=== PATIENT | female | born 1935 | race Caucasian/White ===

== ENCOUNTER → 2016-10-03 | Outpatient (CLI) | payer MEDICARE, OTHER | END | disposition home or self-care (01) | LOC: LAB.O 11:43 | PROVIDERS: ATTEND Internal Medicine Rheumatology | DX: Z79.899 Other long term (current) drug therapy (principal) ==

== ENCOUNTER 2016-10-23 16:26 | Emergency (ER) | payer MEDICARE, OTHER ==
--- NOTE | 2016-10-23 16:30 | ED.PDOC ---
History of Present Illness - General Chief Complaint: Respiratory Problem Stated Complaint: sob Time Seen by Provider: 10/23/16 16:28 Source: patient Exam Limitations: no limitations - History of Present Illness Initial Comments: Carla Grayson 81 female stated that she had been having pleuritic chest pain burning sensation whenever she takes deep breaths for the last 2 days.Also had been having occassional productive cough for several weeks.Denies fever ,chills ,but some sob Timing/Duration: other - 2 days Severity: moderate Activities at Onset: other - cough Possible Cause: no prior episodes Improving Factors: nothing Worsening Factors: other - cough Associated Symptoms: anxiety - 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 Respiratory Risk Factors: no cause identified Allergies/Adverse Reactions: Allergies Penicillins Allergy (Verified 10/23/16 16:49) Home Medications: Ambulatory Orders Folic Acid 1 mg PO BID #0 09/13/12 Hydroxychloroquine Sulfate [Hydroxychloroquine Sulfat] 200 mg PO BID #0 predniSONE [PredniSONE] 5 mg PO DAILY #0 09/13/12 Alendronate Sodium 35 mg PO WKLY 09/12/14 Ascorbic Acid [Vitamin C] 1,000 mg PO DAILY@0700 09/12/14 Biotin [Super Biotin] 5,000 mcg PO DAILY@0700 09/12/14 Calcium 600 mg PO BIDFD 09/12/14 Cetirizine HCl 10 mg PO DAILY 09/12/14 Dexlansoprazole [Dexilant] 60 mg PO BEDTIME 09/12/14 Etanercept [Enbrel Sureclick] 50 mg SC WKLY 09/12/14 Levothyroxine Sodium 137 mcg PO DAILY 09/12/14 Valsartan-Hydrochlorothiazide [Valsartan/Hydrochlorothia 320-25 mg] 1 tab PO DAILY@0700 09/12/14 Tramadol HCl 50 - 100 mg PO Q6H PRN #40 tab 09/17/14 Methotrexate Tab 2.5 mg PO WKLY 11/24/14 Azithromycin [Zithromax Z-Beau] 1 ea PO DAILY #1 pack 10/23/16 Review of Systems - Review of Systems Constitutional: States: no symptoms reported EENTM: States: other - chronic hoarseness Respiratory: States: cough Cardiology: States: see HPI Gastrointestinal/Abdominal: States: no symptoms reported Genitourinary: States: other - oab Musculoskeletal: States: joint pain - has RA Skin: States: no symptoms reported Neurological: States: anxiety Endocrine: States: no symptoms reported Hematologic/Lymphatic: States: no symptoms reported Past Medical History (General) - Patient Medical History Hx Seizures: No Hx Stroke: No Hx Dementia: No Hx Asthma: No Hx of COPD: No Hx Cardiac Disorders: No Hx Congestive Heart Failure: No Hx Pacemaker: No Hx Hypertension: Yes Hx Thyroid Disease: Yes Hx Diabetes: No Hx Gastroesophageal Reflux: Yes Hx Renal Disease: No Hx Cancer: No Hx of HIV: No Hx Hepatitis C: No Hx MRSA: No Hx Other PMH: Yes - Rheumatoid arthritis Surgical History: other - thyroid,knee,egd,colonoscopy,laryngoscopy,radiation treatment for presumed ca neck - Vaccination History Hx Tetanus, Diphtheria Vaccination: No Hx Influenza Vaccination: Yes Hx Pneumococcal Vaccination: Yes - Social History Hx Tobacco Use: No Hx Chewing Tobacco Use: No Hx Alcohol Use: No Hx Substance Use: No Hx Substance Use Treatment: No Hx Depression: Yes Hx Physical Abuse: No Hx Emotional Abuse: No Hx Suspected Abuse: No - Activities of Daily Living Patient Lives Alone: No - Family Medical History - Family History Mother Name: Jyoti ogden Living Status: Age at (years of age): 78 Cause of : cirrhosis Hx Family Asthma: No Hx Family Congestive Heart Failure: Yes Hx Family Hypertension: Yes Hx Family Stroke: No Hx Cardiac Disease: Yes Hx Family Diabetes: Yes Hx Family Cancer: No Physical Exam - Physical Exam General Appearance: Alert, No apparent distress Eyes, Ears, Nose, Throat Exam: PERRL/EOMI, normal ENT inspection, TMs normal, pharynx normal Neck: non-tender, full range of motion, supple, normal inspection Respiratory: chest non-tender, no respiratory distress, crackles Cardiovascular/Chest: normal peripheral pulses, regular rate, rhythm, no edema, no gallop, systolic murmur - 2nd ics left Peripheral Pulses: radial,right: 2+, radial,left: 2+ Extremity: normal range of motion, non-tender, normal inspection, no calf tenderness Neurologic: no motor/sensory deficits, alert, normal mood/affect, oriented x 3 Skin Exam: normal color, warm/dry Lymphatic: no adenopathy Progress - Results/Orders Results/Orders: Vital Signs - 8 hr 10/23/16 10/23/1610/23/17 16:49 16:59 17:30 Temperature 97.9 F Pulse Rate [ 78 73 81 Apical] Respiratory 22 22 22 Rate Blood Pressure 150/72 150/69 162/75 [Right Arm] O2 Sat by Pulse 99 98 98 Oximetry 10/23/16 16:30 IV Care:Saline Lock per Protoc QSHIFT Telemetry .ONCE Sodium Chloride 0.9% (Flush) [Saline Flush Syringe] 10 ml IV PRN PRN Pulse Ox Stat 10/23/16 16:31 EKG Assessment ONCE Pulse Oximetry Assessment DAILY 10/23/16 16:33 EKG Assessment ONCE 10/23/16 16:45 EKG STAT 10/23/16 17:35 TROPONIN-I Stat Laboratory Results WBC 6.7 K/mm3 (4.8-10.8) 10/23/16 16:44 RBC 3.44 M/mm3 (4.20-5.40) L 10/23/16 16:44 Hgb 10.7 gm/dL (12.0-16.0) L 10/23/16 16:44 Hct 31.8 % (36.0-47.0) L 10/23/16 16:44 MCV 92.6 fl (81.0-99.0) 10/23/16 16:44 MCH 31.1 pg (27.0-31.0) H 10/23/16 16:44 MCHC 33.7 g/dL (33.0-37.0) 10/23/16 16:44 RDW 15.5 % (11.5-14.5) H 10/23/16 16:44 Plt Count 190 K/mm3 (130-400) 10/23/16 16:44 MPV 7.6 fl (7.40-10.4) 10/23/16 16:44 Absolute Neuts (auto) 4.30 K/uL (1.8-6.8) 10/23/16 16:44 Absolute Lymphs (auto) 1.40 K/uL (1.0-3.4) 10/23/16 16:44 Absolute Monos (auto) 0.80 K/uL (0.2-0.8) 10/23/16 16:44 Absolute Eos (auto) 0.20 K/uL (0.0-0.4) 10/23/16 16:44 Absolute Basos (auto) 0.00 K/uL (0.0-0.1) 10/23/16 16:44 Neutrophils % 65.4 % (42.0-78.0) 10/23/16 16:44 Lymphocytes % 20.3 % (20.0-50.0) 10/23/16 16:44 Monocytes % 11.6 % (2.0-9.0) H 10/23/16 16:44 Eosinophils % 2.4 % (1.0-5.0) 10/23/16 16:44 Basophils % 0.3 % (0.0-2.0) 10/23/16 16:44 PT 10.8 SECONDS (9.4-12.5) 10/23/16 16:44 INR 0.960 10/23/16 16:44 PTT (SP) 28.6 SECONDS (25.1-36.5) 10/23/16 16:44 D-Dimer, Quantitative < 230 ng/mL (0-230) 10/23/16 16:44 Sodium 139 mmol/L (135-145) 10/23/16 16:44 Potassium 3.7 mmol/L (3.6-5.0) 10/23/16 16:44 Chloride 103 mmol/L (101-111) 10/23/16 16:44 Carbon Dioxide 28 mmol/L (21-31) 10/23/16 16:44 Anion Gap 11.7 (12-18) L 10/23/16 16:44 BUN 27 mg/dL (7-18) H 10/23/16 16:44 Creatinine 1.15 mg/dL (0.6-1.3) 10/23/16 16:44 BUN/Creatinine Ratio 23.5 (10-20) H 10/23/16 16:44 Random Glucose 94 mg/dL (70-105) 10/23/16 16:44 Serum Osmolality 282.4 mOsm/L (275-295) 10/23/16 16:44 Calcium 9.4 mg/dL (8.4-10.2) 10/23/16 16:44 Magnesium 1.6 mg/dL (1.8-2.5) L 10/23/16 16:44 Total Bilirubin 0.5 mg/dL (0.2-1.0) 10/23/16 16:44 Direct Bilirubin < 0.1 mg/dL (0-0.2) 10/23/16 16:44 Indirect Bilirubin 0.4 mg/dL (0.2-0.8) 10/23/16 16:44 AST 28 IU/L (10-42) 10/23/16 16:44 ALT 19 IU/L (10-60) 10/23/16 16:44 Alkaline Phosphatase 50 IU/L (42-121) 10/23/16 16:44 Creatine Kinase 131 IU/L (26-140) 10/23/16 16:44 CK-MB (CK-2) 4.4 ng/mL (0.0-4.4) 10/23/16 16:44 CK-MB (CK-2) % Not Reportable 10/23/16 16:44 Troponin I 0.05 ng/mL (0.01-0.05) 10/23/16 16:44 B-Natriuretic Peptide 150.0 pg/ml (0-100) H 10/23/16 16:44 Serum Total Protein 6.8 gm/dL (6.4-8.2) 10/23/16 16:44 Albumin 3.8 g/dl (3.2-5.5) 10/23/16 16:44 TSH 20.45 uIU/mL (0.34-5.60) H 10/23/16 16:44 10/23/16 16:30 IV Care:Saline Lock per Protoc QSHIFT Telemetry .ONCE Sodium Chloride 0.9% (Flush) [Saline Flush Syringe] 10 ml IV PRN PRN Pulse Ox Stat 10/23/16 16:31 EKG Assessment ONCE Pulse Oximetry Assessment DAILY 10/23/16 16:33 EKG Assessment ONCE 10/23/16 16:45 EKG STAT Laboratory Results WBC 6.7 K/mm3 (4.8-10.8) 10/23/16 16:44 RBC 3.44 M/mm3 (4.20-5.40) L 10/23/16 16:44 Hgb 10.7 gm/dL (12.0-16.0) L 10/23/16 16:44 Hct 31.8 % (36.0-47.0) L 10/23/16 16:44 MCV 92.6 fl (81.0-99.0) 10/23/16 16:44 MCH 31.1 pg (27.0-31.0) H 10/23/16 16:44 MCHC 33.7 g/dL (33.0-37.0) 10/23/16 16:44 RDW 15.5 % (11.5-14.5) H 10/23/16 16:44 Plt Count 190 K/mm3 (130-400) 10/23/16 16:44 MPV 7.6 fl (7.40-10.4) 10/23/16 16:44 Absolute Neuts (auto) 4.30 K/uL (1.8-6.8) 10/23/16 16:44 Absolute Lymphs (auto) 1.40 K/uL (1.0-3.4) 10/23/16 16:44 Absolute Monos (auto) 0.80 K/uL (0.2-0.8) 10/23/16 16:44 Absolute Eos (auto) 0.20 K/uL (0.0-0.4) 10/23/16 16:44 Absolute Basos (auto) 0.00 K/uL (0.0-0.1) 10/23/16 16:44 Neutrophils % 65.4 % (42.0-78.0) 10/23/16 16:44 Lymphocytes % 20.3 % (20.0-50.0) 10/23/16 16:44 Monocytes % 11.6 % (2.0-9.0) H 10/23/16 16:44 Eosinophils % 2.4 % (1.0-5.0) 10/23/16 16:44 Basophils % 0.3 % (0.0-2.0) 10/23/16 16:44 PT 10.8 SECONDS (9.4-12.5) 10/23/16 16:44 INR 0.960 10/23/16 16:44 PTT (SP) 28.6 SECONDS (25.1-36.5) 10/23/16 16:44 D-Dimer, Quantitative < 230 ng/mL (0-230) 10/23/16 16:44 Sodium 139 mmol/L (135-145) 10/23/16 16:44 Potassium 3.7 mmol/L (3.6-5.0) 10/23/16 16:44 Chloride 103 mmol/L (101-111) 10/23/16 16:44 Carbon Dioxide 28 mmol/L (21-31) 10/23/16 16:44 Anion Gap 11.7 (12-18) L 10/23/16 16:44 BUN 27 mg/dL (7-18) H 10/23/16 16:44 Creatinine 1.15 mg/dL (0.6-1.3) 10/23/16 16:44 BUN/Creatinine Ratio 23.5 (10-20) H 10/23/16 16:44 Random Glucose 94 mg/dL (70-105) 10/23/16 16:44 Serum Osmolality 282.4 mOsm/L (275-295) 10/23/16 16:44 Calcium 9.4 mg/dL (8.4-10.2) 10/23/16 16:44 Magnesium 1.6 mg/dL (1.8-2.5) L 10/23/16 16:44 Total Bilirubin 0.5 mg/dL (0.2-1.0) 10/23/16 16:44 Direct Bilirubin < 0.1 mg/dL (0-0.2) 10/23/16 16:44 Indirect Bilirubin 0.4 mg/dL (0.2-0.8) 10/23/16 16:44 AST 28 IU/L (10-42) 10/23/16 16:44 ALT 19 IU/L (10-60) 10/23/16 16:44 Alkaline Phosphatase 50 IU/L (42-121) 10/23/16 16:44 LD Total 278 IU/L (91-180) H 10/23/16 17:45 Creatine Kinase 131 IU/L (26-140) 10/23/16 16:44 CK-MB (CK-2) 4.4 ng/mL (0.0-4.4) 10/23/16 16:44 CK-MB (CK-2) % Not Reportable 10/23/16 16:44 Troponin I 0.05 ng/mL (0.01-0.05) 10/23/16 17:45 B-Natriuretic Peptide 150.0 pg/ml (0-100) H 10/23/16 16:44 Serum Total Protein 6.8 gm/dL (6.4-8.2) 10/23/16 16:44 Albumin 3.8 g/dl (3.2-5.5) 10/23/16 16:44 TSH 20.45 uIU/mL (0.34-5.60) H 10/23/16 16:44 Troponin #2 -normal limits,LD/LDH-278 - EKG/XRAY/CT EKG: Sinus, no ST T wave changes Comments: heart rate-82;no acute changes XRAY: chest - no acute abnormalities Departure - Departure Clinical Impression: Personal history of rheumatoid arthritis, Hypomagnesemia Chest pain Qualifiers: Chest pain type: pleurodynia Qualified Code(s): R07.81 - Pleurodynia Hypothyroidism Qualifiers: Hypothyroidism type: postoperative Qualified Code(s): E89.0 - Postprocedural hypothyroidism Time of Disposition: 18:26 Disposition: Discharge to Home or Self Care Condition: Fair Referrals: Piero Mann MD [Primary Care Provider] - 1-2 Weeks Prescriptions: Azithromycin [Zithromax Z-Beau] 1 ea PO DAILY #1 pack Home Medications: Ambulatory Orders Folic Acid 1 mg PO BID #0 09/13/12 Hydroxychloroquine Sulfate [Hydroxychloroquine Sulfat] 200 mg PO BID #0 predniSONE [PredniSONE] 5 mg PO DAILY #0 09/13/12 Alendronate Sodium 35 mg PO WKLY 09/12/14 Ascorbic Acid [Vitamin C] 1,000 mg PO DAILY@0709/12/14 Biotin [Super Biotin] 5,000 mcg PO DAILY@69909/12/14 Calcium 600 mg PO BIDFD 09/12/14 Cetirizine HCl 10 mg PO DAILY 09/12/14 Dexlansoprazole [Dexilant] 60 mg PO BEDTIME 09/12/14 Etanercept [Enbrel Sureclick] 50 mg SC WKLY 09/12/14 Levothyroxine Sodium 137 mcg PO DAILY 09/12/14 Valsartan-Hydrochlorothiazide [Valsartan/Hydrochlorothia 320-25 mg] 1 tab PO DAILY@0700 09/12/14 Tramadol HCl 50 - 100 mg PO Q6H PRN #40 tab 09/17/14 Methotrexate Tab 2.5 mg PO WKLY 11/24/14 Azithromycin [Zithromax Z-Beau] 1 ea PO DAILY #1 pack 10/23/16 Additional Instructions: RETURN TO EMERGENCY ROOM NEEDED;Need to take thyroid pills 1 hour before eating or 2 hours after meals
[2016-10-23] MEDS ORDERED: ASPIRIN TABLET 325 MG TAB ONE (16:34)
[2016-10-23] MEDS: SODIUM CHLORIDE 0.9% (FLUSH) 10 ML SYG IV PRN (16:36)
[2016-10-23] MEDS: ASPIRIN TABLET 325 MG TAB PO ONE (16:36)
--- NOTE | 2016-10-23 16:58 | RAD ---
EXAM: Chest,1 View CLINICAL INDICATION: 81-year-old female with chest pain. TECHNIQUE: Single view, AP portable chest was obtained. COMPARISON: 09/12/2012. FINDINGS: Stable prominent cardiac and mediastinal silhouette. Heart size is top normal. Tortuous thoracic aorta. Lungs are clear without focal opacity, pneumothorax or pleural effusions. The visualized bones are within normal limits. IMPRESSION: No acute cardiopulmonary abnormalities. Electronically signed by: Maribel Sorto MD 10/23/2016 4:59 PM CDT Workstation: [id number]
[2016-10-23 18:47] VITALS: BP 120/84; TEMP 97.5; O2SAT 97
== END 2016-10-23 18:40 | disposition home or self-care (01) ==
LOC: ER 16:26
DX: R07.81 Pleurodynia (principal); E89.0 Postprocedural hypothyroidism; M06.9 Rheumatoid arthritis, unspecified; E83.42 Hypomagnesemia; I10 Essential (primary) hypertension; E07.9 Disorder of thyroid, unspecified; K21.9 Gastro-esophageal reflux disease without esophagitis; Z88.0 Allergy status to penicillin; Z79.899 Other long term (current) drug therapy; Z85.41 Personal history of malignant neoplasm of cervix uteri

== ENCOUNTER → 2016-11-27 | Outpatient (CLI) | payer MEDICARE, OTHER | END | disposition home or self-care (01) | LOC: GMA 16:53 | PROVIDERS: ATTEND Nurse Practitioner Family | DX: M79.661 Pain in right lower leg (principal) ==

== ENCOUNTER → 2016-11-28 | Outpatient (CLI) | payer MEDICARE, OTHER ==
--- NOTE | 2016-11-28 15:47 | US ---
EXAM DESCRIPTION: Venous,Lower Extremity RT CLINICAL HISTORY: PAIN IN RIGHT LOWER LEG COMPARISON: None Available. TECHNIQUE: Two -dimensional and doppler sonographic evaluation of the deep venous system of the right lower extremity. FINDINGS: Doppler evaluation shows normal color flow and normal phasicity and augmentation of the right common femoral vein, femoral vein, popliteal vein, greater saphenous vein, peroneal, and posterior tibial vein. The right lower extremity deep veins showed normal occlusion with transducer pressure. Two-dimensional survey showed no echogenic thrombus within these veins. IMPRESSION: 1. Duplex ultrasound evaluation of the right lower extremity deep venous system showing no evidence of thrombosis or embolism. Electronically signed by: David Ayers MD 11/28/2016 3:45 PM CDT Workstation: [id number]
== END | disposition home or self-care (01) ==
LOC: US 07:55
PROVIDERS: ATTEND Nurse Practitioner Family
DX: M79.661 Pain in right lower leg (principal)

== ENCOUNTER → 2016-12-16 | Outpatient (CLI) | payer MEDICARE, OTHER | END | disposition home or self-care (01) | LOC: LAB.O 12:05 | PROVIDERS: ATTEND Internal Medicine Rheumatology | DX: Z79.899 Other long term (current) drug therapy (principal) ==

== ENCOUNTER → 2017-01-22 | Outpatient (CLI) | payer MEDICARE, OTHER | LOC: LAB.O 15:45 | PROVIDERS: ATTEND Internal Medicine Rheumatology | DX: Z79.899 Other long term (current) drug therapy (principal) ==

== ENCOUNTER → 2017-03-31 | Outpatient (CLI) | payer MEDICARE, OTHER | END | disposition home or self-care (01) | LOC: LAB.O 11:44 | PROVIDERS: ATTEND Internal Medicine Rheumatology | DX: Z79.899 Other long term (current) drug therapy (principal); E03.9 Hypothyroidism, unspecified; I10 Essential (primary) hypertension ==

== ENCOUNTER → 2017-05-27 | Outpatient (CLI) | payer MEDICARE, OTHER | END | disposition home or self-care (01) | LOC: LAB.O 11:13 | PROVIDERS: ATTEND Internal Medicine Rheumatology | DX: Z79.899 Other long term (current) drug therapy (principal) ==

== ENCOUNTER → 2017-09-09 | Outpatient (CLI) | payer MEDICARE, OTHER | LOC: LAB.O 13:52 | PROVIDERS: ATTEND Internal Medicine Rheumatology | DX: Z79.899 Other long term (current) drug therapy (principal) ==

== ENCOUNTER 2017-10-22 11:49 | Emergency (ER) | payer MEDICARE, OTHER ==
[2017-10-22 11:59] VITALS: TEMP 98.1
--- NOTE | 2017-10-22 12:35 | RAD ---
EXAM DESCRIPTION: Chest,2 Views CLINICAL HISTORY: left anterior chest wall and posterior upper left COMPARISON: October 23, 2016 FINDINGS: Two-view chest x-ray shows mild enlargement of the cardiac silhouette without pulmonary vascular congestion. Tortuosity the thoracic aorta is seen. The lungs are normally aerated and clear. Costophrenic angles are sharp. Mild disc degenerative changes of the spine are seen. Diffuse osteopenia the osseous structures is noted. IMPRESSION: No radiographic evidence of acute cardiopulmonary disease. Electronically signed by: Tobias King MD 10/22/2017 12:33 PM CDT
[2017-10-22] MEDS: POTASSIUM CHLORIDE ELIXIR 20 MEQ/15 ML UD PO ONE (12:37)
[2017-10-22] MEDS ORDERED: MAGNESIUM OXIDE 400 MG TAB ONE (13:23)
[2017-10-22] MEDS: MAGNESIUM OXIDE 400 MG TAB PO ONE (13:28)
[2017-10-22] MEDS: METOPROLOL TARTRATE 25 MG TAB PO ONE (13:28)
[2017-10-22 15:19] VITALS: O2SAT 96
--- NOTE | 2017-10-22 16:17 | ED.PDOC ---
History of Present Illness - General Chief Complaint: Chest Pain/WI Stated Complaint: chest discomfort,left arm tenderness Time Seen by Provider: 10/22/17 12:00 Source: patient Exam Limitations: no limitations - History of Present Illness Initial Comments: the patient is an 82-year-old female brought in with family secondary to chest pain that has been persistent for the last 3 days. She does have intermittent spasms. Chest pain is towards the left upper chest and also towards the left upper back. It is worse with movement. She is tender to palpation over the distal pectoralis muscles. On the left. She is also tender to palpation over the left rhomboid and upper left paraspinal muscles. There is some palpable muscle spasm. No obvious bruising. No rash. No deformity. Range of motion is preserved. She does have a history of rheumatoid arthritis. Severity: mild Improving Factors: nothing Worsening Factors: movement Associated Symptoms: chest pain Allergies/Adverse Reactions: Allergies Penicillins Allergy (Verified 10/23/16 16:49) Home Medications: Ambulatory Orders predniSONE [PredniSONE] 5 mg PO DAILY #0 09/13/12 Alendronate Sodium 150 mg PO WKLY 09/12/14 Cetirizine HCl 10 mg PO DAILY 09/12/14 Levothyroxine Sodium 137 mcg PO DAILY 09/12/14 Valsartan-Hydrochlorothiazide [Valsartan/Hydrochlorothia 320-25 mg] 1 tab PO DAILY@0700 09/12/14 Methotrexate Tab 2.5 mg PO WKLY 11/24/14 Citalopram Hydrobromide [Citalopram] 10 mg PO DAILY 10/22/17 Colestipol HCl 1 gm PO DAILY 10/22/17 Fluticasone Furoate-Vilanterol [Breo Ellipta] 1 inh IN DAILY 10/22/17 Fluticasone Propionate (Nasal) [Flonase Allergy Relief] 2 inh NA DAILY 10/22/17 Fluticasone/Salmeterol 250/50 [Advair Diskus] 1 puff INH DAILY 10/22/17 Folic Acid 1 mg PO DAILY 10/22/17 Hydroxychloroquine Sulfate [Hydroxychloroquine Sulfat] 200 mg PO DAILY 10/22/17 Magnesium Oxide 400 mg PO DAILY #14 cap 10/22/17 Metoprolol Tartrate 25 mg PO BID #60 tab 06/06/18 Montelukast [Singulair] 10 mg PO BEDTIME 10/22/17 Potassium Chloride [Potassium Chloride ER] 10 meq PO DAILY #14 tab 10/22/17 Valsartan 80 mg PO DAILY #30 tab 10/22/17 Review of Systems - Review of Systems Constitutional: States: no symptoms reported EENTM: States: nose congestion Respiratory: States: no symptoms reported Cardiology: States: chest pain Gastrointestinal/Abdominal: States: no symptoms reported Genitourinary: States: no symptoms reported Musculoskeletal: States: back pain Skin: States: no symptoms reported Neurological: States: no symptoms reported Endocrine: States: no symptoms reported All other Systems: No Change from Baseline Past Medical History (General) - Patient Medical History Hx Seizures: No Hx Stroke: No Hx Dementia: No Hx Asthma: No Hx of COPD: No Hx Cardiac Disorders: No Hx Congestive Heart Failure: No Hx Pacemaker: No Hx Hypertension: Yes Hx Thyroid Disease: Yes Hx Diabetes: No Hx Gastroesophageal Reflux: Yes Hx Renal Disease: No Hx Cancer: No Hx of HIV: No Hx Hepatitis C: No Hx MRSA: No - Vaccination History Hx Tetanus, Diphtheria Vaccination: No Hx Influenza Vaccination: Yes Hx Pneumococcal Vaccination: Yes - Social History Hx Tobacco Use: Yes Hx Chewing Tobacco Use: No Hx Alcohol Use: No Hx Substance Use: No Hx Substance Use Treatment: No Hx Depression: Yes Hx Physical Abuse: No Hx Emotional Abuse: No Hx Suspected Abuse: No Family Medical History - Family History Mother Name: Jyoti ogden Living Status: Age at (years of age): 78 Cause of : cirrhosis Hx Family Asthma: No Hx Family Congestive Heart Failure: Yes Hx Family Hypertension: Yes Hx Family Stroke: No Hx Cardiac Disease: Yes Hx Family Diabetes: Yes Hx Family Cancer: No Physical Exam - Physical Exam General Appearance: Alert, Anxious, No apparent distress Eye Exam: bilateral normal Ears, Nose, Throat: hearing grossly normal, normal ENT inspection, normal pharynx Neck: full range of motion, supple Respiratory: lungs clear, normal breath sounds, no respiratory distress, no accessory muscle use, other - ee history of present illness Cardiovascular/Chest: normal peripheral pulses, no edema, other Peripheral Pulses: radial,right: 2+, radial,left: 2+, dorsalis pedis,right: 2+, dorsalis pedis,left: 2+ Gastrointestinal/Abdominal: non tender, soft Rectal Exam: deferred Extremity: normal range of motion, non-tender, normal inspection, no pedal edema , normal capillary refill 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 She has tenderness to palpation over the rhomboid muscle, the distal pectoralis muscle. These are likely made worse by the hypomagnesemia and hypokalemia. She will be placed on supplements for these for the next 2 weeks. Additionally she is mildly dehydrated which may be contributing. I'm going to change her valsartan hydrochlorothiazide to valsartan. This may help with the above potassium and magnesium issues as well. Additionally the patient does have an elevation of her BNP but no clinical evidence otherwise of any fluid overload. I suspect that this is related to her elevated blood pressures. I'm going to place the patient on metoprolol 25 mg twice daily. I want her to follow up with her primary care doctor towards the end of this week for reevaluation of the above issues. Additionally the patient's TSH was low at 0.07. Her Synthroid dose may need to be lowered in the near future after a full panel has been taken. ER warnings were given for any significant worsening. No evidence of significant infection has been found at this time. - Results/Orders Results/Orders: Laboratory Tests 10/22/17 10/22/17 10/22/17 12:00 12:00 12:00 WBC 7.6 RBC 4.17 L Hgb 12.8 Hct 38.1 MCV 91.4 MCH 30.6 MCHC 33.6 RDW 16.0 H Plt Count 234 MPV 8.1 Absolute Neuts (auto) 5.60 Absolute Lymphs (auto) 1.20 Absolute Monos (auto) 0.70 Absolute Eos (auto) 0.10 Absolute Basos (auto) 0.00 Neutrophils % 73.7 Lymphocytes % 15.6 L Monocytes % 8.9 Eosinophils % 1.3 Basophils % 0.5 Sodium 138 Potassium 3.3 L Chloride 100 L Carbon Dioxide 30 Anion Gap 11.3 L BUN 20 H Creatinine 0.87 BUN/Creatinine Ratio 23.0 H Random Glucose 98 Serum Osmolality 278.3 Calcium 10.0 Magnesium 1.6 L Total Bilirubin 0.6 AST 24 ALT 16 Alkaline Phosphatase 50 Creatine Kinase 58 CK-MB (CK-2) 3.4 CK-MB (CK-2) % Not Reportable Troponin I 0.03 B-Natriuretic Peptide 446.0 H* Serum Total Protein 7.3 Albumin 4.1 Globulin 3.2 Albumin/Globulin Ratio 1.3 TSH 0.07 L Urine Color Urine Appearance Urine pH Ur Specific [place] Urine Protein Urine Glucose (UA) Urine Ketones Urine Blood Urine Nitrite Urine Bilirubin Urine Urobilinogen Ur Leukocyte Esterase Urine RBC Urine WBC Ur Epithelial Cells Urine Bacteria 10/22/17 13:00 WBC RBC Hgb Hct MCV MCH MCHC RDW Plt Count MPV Absolute Neuts (auto) Absolute Lymphs (auto) Absolute Monos (auto) Absolute Eos (auto) Absolute Basos (auto) Neutrophils % Lymphocytes % Monocytes % Eosinophils % Basophils % Sodium Potassium Chloride Carbon Dioxide Anion Gap BUN Creatinine BUN/Creatinine Ratio Random Glucose Serum Osmolality Calcium Magnesium Total Bilirubin AST ALT Alkaline Phosphatase Creatine Kinase CK-MB (CK-2) CK-MB (CK-2) % Troponin I B-Natriuretic Peptide Serum Total Protein Albumin Globulin Albumin/Globulin Ratio TSH Urine Color Yellow Urine Appearance Clear Urine pH 6.0 Ur Specific [place] 1.015 Urine Protein Negative Urine Glucose (UA) Negative Urine Ketones Negative Urine Blood Trace-lysed H Urine Nitrite Negative Urine Bilirubin Negative Urine Urobilinogen 0.2 Ur Leukocyte Esterase Trace H Urine RBC 0-1 Urine WBC 0-1 Ur Epithelial Cells 0 Urine Bacteria 0 hest x-rays benign except for mild cardiomegaly. No overt fluid overload. No infiltrate. No fractures. No mass. EKG shows normal sinus rhythm at 84 bpm. Normal axis. Borderline LVH. No acute ST segment changes concerning for ischemia. QT intervals within normal limits. Departure - Departure Clinical Impression: Atypical chest pain, Hypokalemia, Hypomagnesemia, Dehydration, Uncontrolled hypertension Disposition: Discharge to Home or Self Care Condition: Fair Departure Forms: ED Discharge - Pt. Copy, Patient Portal Self Enrollment Instructions: DI for Muscle Strain, DI for Hypokalemia, DI for Dehydration -- Adult, DI for Hyperthyroidism Diet: regular diet Activity: increase activity as tolerated Referrals: Piero Mann MD [Primary Care Provider] - 1-5 Days Prescriptions: Magnesium Oxide 400 mg PO DAILY #14 cap Metoprolol Tartrate 25 mg PO BID #60 tab Potassium Chloride [Potassium Chloride ER] 10 meq PO DAILY #14 tab Valsartan 80 mg PO DAILY #30 tab Home Medications: Ambulatory Orders predniSONE [PredniSONE] 5 mg PO DAILY #0 09/13/12 Alendronate Sodium 150 mg PO WKLY 09/12/14 Cetirizine HCl 10 mg PO DAILY 09/12/14 Levothyroxine Sodium 137 mcg PO DAILY 09/12/14 Valsartan-Hydrochlorothiazide [Valsartan/Hydrochlorothia 320-25 mg] 1 tab PO DAILY@0700 09/12/14 Methotrexate Tab 2.5 mg PO WKLY 11/24/14 Citalopram Hydrobromide [Citalopram] 10 mg PO DAILY 10/22/17 Colestipol HCl 1 gm PO DAILY 10/22/17 Fluticasone Furoate-Vilanterol [Breo Ellipta] 1 inh IN DAILY 10/22/17 Fluticasone Propionate (Nasal) [Flonase Allergy Relief] 2 inh NA DAILY 10/22/17 Fluticasone/Salmeterol 250/50 [Advair Diskus] 1 puff INH DAILY 10/22/17 Folic Acid 1 mg PO DAILY 10/22/17 Hydroxychloroquine Sulfate [Hydroxychloroquine Sulfat] 200 mg PO DAILY 10/22/17 Magnesium Oxide 400 mg PO DAILY #14 cap 10/22/17 Metoprolol Tartrate 25 mg PO BID #60 tab 10/22/17 Montelukast [Singulair] 10 mg PO BEDTIME 10/22/17 Potassium Chloride [Potassium Chloride ER] 10 meq PO DAILY #14 tab 10/22/17 Valsartan 80 mg PO DAILY #30 tab 10/22/17 Additional Instructions: the patient is an 82-year-old female presenting with atypical chest pain for the last 3 days. She has tenderness to palpation over the rhomboid muscle, the distal pectoralis muscle. These are likely made worse by the hypomagnesemia and hypokalemia. She will be placed on supplements for these for the next 2 weeks. Additionally she is mildly dehydrated which may be contributing. I'm going to change her valsartan hydrochlorothiazide to valsartan. This may help with the above potassium and magnesium issues as well. Additionally the patient does have an elevation of her BNP but no clinical evidence otherwise of any fluid overload. I suspect that this is related to her elevated blood pressures. I'm going to place the patient on metoprolol 25 mg twice daily. I want her to follow up with her primary care doctor towards the end of this week for reevaluation of the above issues. Additionally the patient's TSH was low at 0.07. Her Synthroid dose may need to be lowered in the near future after a full panel has been taken. ER warnings were given for any significant worsening. No evidence of significant infection has been found at this time.
[2017-10-22 16:49] VITALS: BP 173/65
== END 2017-10-22 16:50 | disposition home or self-care (01) ==
LOC: ER 11:49
DX: R07.9 Chest pain, unspecified (principal); E87.6 Hypokalemia; E86.0 Dehydration; I10 Essential (primary) hypertension; E83.42 Hypomagnesemia; E07.9 Disorder of thyroid, unspecified; K21.9 Gastro-esophageal reflux disease without esophagitis; Z87.891 Personal history of nicotine dependence; M06.9 Rheumatoid arthritis, unspecified

== ENCOUNTER → 2017-11-04 | Outpatient (CLI) | payer MEDICARE, OTHER | LOC: GMAH 14:23 | PROVIDERS: ATTEND Family Medicine | DX: E87.6 Hypokalemia (principal) ==

== ENCOUNTER → 2017-11-18 | Outpatient (CLI) | payer MEDICARE, OTHER | LOC: LAB.O 13:40 | PROVIDERS: ATTEND Internal Medicine Rheumatology | DX: Z79.899 Other long term (current) drug therapy (principal) ==

== ENCOUNTER → 2017-12-01 | Outpatient (CLI) | payer MEDICARE, OTHER | LOC: GMALS 16:44 | PROVIDERS: ATTEND Nurse Practitioner Acute Care | DX: D51.3 Other dietary vitamin B12 deficiency anemia (principal); E53.9 Vitamin B deficiency, unspecified ==

== ENCOUNTER → 2018-03-09 | Outpatient (CLI) | payer MEDICARE, OTHER ==
--- NOTE | 2018-03-09 17:51 | MRI ---
EXAM DESCRIPTION: Lumbar Spine w/o Contrast : Magnetic Resonance Imaging. CLINICAL HISTORY: RADICULOPATHY, LUMBAR REGION COMPARISON: None. TECHNIQUE: Multiplanar, multiple standard sequences, non contrast MRI, lumbar spine. FINDINGS: L5-S1: Demonstrated on T2 axial sequence 201, image 8. Normal signal in the disc with disc space preserved. Tiny posterior midline bulge. Right facet arthrosis and flavum ligament hypertrophy. Moderate narrowing of the right foramen and mild narrowing of the left foramen. Mild canal narrowing. L4-5: Moderate loss of the disc space with disc desiccation. Grade 1 anterolisthesis. Disc bulges 4 mm opacity L5 endplate. Bilateral facet arthrosis and moderate flavum ligament hypertrophy with compression of the thecal sac AP canal diameter 8 mm. Modic type II endplate reactive changes to the right of midline with disc spur complex encroaching on the foramen and the exiting right L4 nerve which is stenotic. Left foramen patent. To the left of midline, is an extruded or sequestered fragment approximately 5 mm in length and 9 mm in width migrating inferior to the disc space into the left lateral recess and most likely impinging the inferior left L5 nerve. L3-4: Normal signal in the disc and disc space maintained. Mild to moderate flavum ligament hypertrophy and minimal facet arthrosis with mild canal narrowing. Minimal to moderate narrowing of the left foramen with right foramen patent. L2-3: Normal signal in the disc with disc space maintained. Bilateral flavum ligament hypertrophy. Minimal disc bulge into the left foramen with minimal narrowing. Canal and right foramen are patent. L1-2: Disc desiccation with minimal posterior midline bulge. Left facet arthrosis and ligament hypertrophy. Mild narrowing of the left foramen. Conus terminates just above the disc space level. T12-L1: Disc space maintained with normal signal in the disc. Posterior elements unremarkable. Canal and foramina are patent. Dextroscoliosis L1-L3. Paravertebral soft tissues showing paraspinal muscle atrophy and atherosclerotic changes in the abdominal aorta.. Well-circumscribed hyperintense T1 and T2 signal in the inferior L2 endplate with no signal in the inversion recovery sequence indicating a hemangioma. Normal marrow signal in the remaining vertebral bodies and the posterior elements. Vertebral bodies are not compressed at any level. IMPRESSION: 1. Advanced spondylosis to the right of midline at L4-5 with disc spur complex encroaching on the right L4 nerve exiting the foramen which is stenotic. Left posterior disc herniation with extrusion or sequestered fragment migrating into the subarticular recess and impinging the descending left L5 nerve. Mild canal stenosis. 2. Tiny posterior midline bulge L5-S1. Moderate narrowing of the right foramen. 3. Lumbar dextroscoliosis with spondylosis and disc bulging narrowing the left foramen at L3-4, L2-3, and L1-L2. Electronically signed by: David Ayers MD 03/09/2018 5:50 PM CDT
== END ==
LOC: MRI 11:01
PROVIDERS: ATTEND Family Medicine
DX: M54.16 Radiculopathy, lumbar region (principal); M47.896 Other spondylosis, lumbar region; M41.86 Other forms of scoliosis, lumbar region; M51.26 Other intervertebral disc displacement, lumbar region

== ENCOUNTER → 2018-05-21 | Outpatient (CLI) | payer MEDICARE, OTHER ==
--- NOTE | 2018-05-21 13:41 | MRI ---
EXAM DESCRIPTION: Lumbar Spine w/o Contrast CLINICAL HISTORY: 82 years Female, RADICULOPATHY COMPARISON: MRI of the lumbar spine dated 03/09/2018. TECHNIQUE: Multiplanar multiecho imaging of the lumbar spine was performed without intravenous contrast administration. FINDINGS: The vertebral body heights are well-maintained with no acute compression deformity. Multilevel intervertebral disc space narrowing is noted. The conus medullaris terminates at T12-L1 intervertebral disc space. The visualized spinal cord demonstrates no signal abnormality. L1-L2: Mild disc bulge and facet arthropathy with no central canal stenosis. There is mild right and [id number] left neural foraminal narrowing. L2-L3: Mild disc bulge and facet arthropathy with no central canal stenosis. There is mild bilateral neural foraminal narrowing. L3-L4: Posterior disc bulge and facet arthropathy with no central canal stenosis. There is mild right and moderate left neural foraminal narrowing. L4-L5: Posterior disc osteophyte complex with a superimposed left paracentral disc extrusion measuring approximately 1.5 cm in craniocaudal dimension. This abuts the traversing left L5 nerve root. Severe right and mild left neural foraminal narrowing is noted secondary to facet arthropathy. L5-S1: No central canal stenosis. There is mild bilateral neural foraminal narrowing secondary to facet arthropathy. The visualized prevertebral and paravertebral soft tissues appear unremarkable. IMPRESSION: 1. Posterior disc osteophyte complex with a superimposed left paracentral disc extrusion at L4-L5. There is resultant abutment of the traversing left L5 nerve root. 2. Multilevel degenerative disc disease and facet arthropathy throughout the lumbar spine with variable degrees of neural foraminal narrowing, worse at L4-L5 level on the right side. Electronically signed by: Sofya Melendez MD 05/21/2018 1:39 PM [facility]
== END ==
LOC: MRI 13:00
PROVIDERS: ATTEND Family Medicine
DX: M51.16 Intervertebral disc disorders with radiculopathy, lumbar region (principal); M25.78 Osteophyte, vertebrae

== ENCOUNTER 2018-07-23 19:17 | Emergency (ER) | payer MEDICARE, OTHER ==
--- NOTE | 2018-07-23 19:37 | ED.PDOC ---
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 UNDERWENT DXT SHE HAD VOMITED FEW TIMES TODAY FAMILY STATED THEY HAD GIVEN ZOFRAN AND DEXAMETHASONE UNDER THE DIRECTION OF HER ONCOLOGIST DR MAYES PE AWAKE ALERT ORIENTED X 3 LEFT NECK SURGICAL INCISION APPEARS DRY NO HEMATOMA MADHU DRAIN IS EMPTY LUNGS CLEAR HEART SOUNDS SYSTOLIC MURMUR LEFT STERNAL BORDER ABD SOFT EXTREMITIES 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 - History of Present Illness Timing/Duration: 4-6 hours Severity: moderate Improving Factors: nothing Associated Symptoms: denies symptoms Allergies/Adverse Reactions: Allergies Penicillins Allergy (Verified 10/23/16 16:49) Home Medications: Ambulatory Orders predniSONE [PredniSONE] 5 mg PO DAILY #0 09/13/12 Alendronate Sodium 150 mg PO WKLY 09/12/14 Cetirizine HCl 10 mg PO DAILY 09/12/14 Levothyroxine Sodium 137 mcg PO DAILY 09/12/14 Valsartan-Hydrochlorothiazide [Valsartan/Hydrochlorothia 320-25 mg] 1 tab PO DAILY@0700 09/12/14 Methotrexate Tab 2.5 mg PO WKLY 11/24/14 Citalopram Hydrobromide [Citalopram] 10 mg PO DAILY 10/22/17 Colestipol HCl 1 gm PO DAILY 10/22/17 Fluticasone Furoate-Vilanterol [Breo Ellipta] 1 inh IN DAILY 10/22/17 Fluticasone Propionate (Nasal) [Flonase Allergy Relief] 2 inh NA DAILY 10/22/17 Fluticasone/Salmeterol 250/50 [Advair Diskus] 1 puff INH DAILY 10/22/17 Folic Acid 1 mg PO DAILY 10/22/17 Hydroxychloroquine Sulfate [Hydroxychloroquine Sulfat] 200 mg PO DAILY 10/22/17 Magnesium Oxide 400 mg PO DAILY #14 cap 10/22/17 Metoprolol Tartrate 25 mg PO BID #60 tab 10/22/17 Montelukast [Singulair] 10 mg PO BEDTIME 10/22/17 Potassium Chloride [Potassium Chloride ER] 10 meq PO DAILY #14 tab 10/22/17 Valsartan 80 mg PO DAILY #30 tab 10/22/17 Review of Systems - Review of Systems Constitutional: States: no symptoms reported EENTM: States: no symptoms reported Respiratory: States: no symptoms reported Cardiology: States: no symptoms reported Gastrointestinal/Abdominal: States: no symptoms reported Genitourinary: States: no symptoms reported Musculoskeletal: States: no symptoms reported Skin: States: no symptoms reported Neurological: States: no symptoms reported Endocrine: States: no symptoms reported Hematologic/Lymphatic: States: no symptoms reported Past Medical History (General) - Patient Medical History Hx Seizures: No Hx Stroke: No Hx Dementia: No Hx Asthma: No Hx of COPD: No Hx Cardiac Disorders: No Hx Congestive Heart Failure: No Hx Pacemaker: No Hx Hypertension: Yes Hx Thyroid Disease: Yes Hx Diabetes: No Hx Gastroesophageal Reflux: Yes Hx Renal Disease: No Hx Cancer: No Hx of HIV: No Hx Hepatitis C: No Hx MRSA: No - Vaccination History Hx Tetanus, Diphtheria Vaccination: No Hx Influenza Vaccination: Yes Hx Pneumococcal Vaccination: Yes - Social History Hx Tobacco Use: Yes Hx Chewing Tobacco Use: No Hx Alcohol Use: No Hx Substance Use: No Hx Substance Use Treatment: No Hx Depression: Yes Hx Physical Abuse: No Hx Emotional Abuse: No Hx Suspected Abuse: No Family Medical History - Family History Mother Name: Jyoti ogden Living Status: Age at (years of age): 78 Cause of : cirrhosis Hx Family Asthma: No Hx Family Congestive Heart Failure: Yes Hx Family Hypertension: Yes Hx Family Stroke: No Hx Cardiac Disease: Yes Hx Family Diabetes: Yes Hx Family Cancer: No Physical Exam - Physical Exam General Appearance: Alert, Comfortable Eye Exam: bilateral normal Ears, Nose, Throat: hearing grossly normal, normal ENT inspection, normal pharynx Neck: non-tender, full range of motion, supple Respiratory: chest non-tender, lungs clear, normal breath sounds, no respiratory distress, no accessory muscle use Cardiovascular/Chest: normal peripheral pulses, regular rate, rhythm, no gallop, systolic murmur Peripheral Pulses: radial,right: 2+, radial,left: 2+, femoral,right: 2+, femoral,left: 2+ Gastrointestinal/Abdominal: normal bowel sounds, non tender, soft, no pulsatile mass 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 tested, no motor/sensory deficits, alert, normal mood/affect, oriented x 3 Progress - Progress Progress: 07/23/18 21:12 Laboratory Tests 07/23/18 07/23/18 19:40 19:40 WBC 6.0 RBC 3.52 L Hgb 10.5 L Hct 31.9 L MCV 90.8 MCH 29.7 MCHC 32.7 L RDW 16.0 H Plt Count 197 MPV 8.0 Absolute Neuts (auto) 4.80 Absolute Lymphs (auto) 0.70 L Absolute Monos (auto) 0.40 Absolute Eos (auto) 0.00 Absolute Basos (auto) 0.00 Neutrophils % 81.0 H Lymphocytes % 11.4 L Monocytes % 7.2 Eosinophils % 0.3 L Basophils % 0.1 Sodium 134 L Potassium 4.0 Chloride 101 Carbon Dioxide 23 Anion Gap 14.0 BUN 26 H Creatinine 0.82 BUN/Creatinine Ratio 31.7 H Random Glucose 108 H Serum Osmolality 273.5 L Calcium 8.8 Total Bilirubin 0.7 AST 19 ALT 14 Alkaline Phosphatase 62 Serum Total Protein 6.2 L Albumin 3.6 Globulin 2.6 Albumin/Globulin Ratio 1.4 07/23/18 21:12 CT HEAD LEFT FRONTAL LOBE EDEMA WITH [address] LUMBAR COMPRESSION FRACTURE T10 WITH MINIMAL RETROPULSION FINDINGS DISCUSSED WITH DR MAYES ( HER ONCOLOGIST ) PLAN DIRECT ADMIT TO [facility] FOR FURTHER WORK UP DISCUSSED WITH DR RODNEY VARGAS MD WHO ACCEPTED THE PATIENT Departure - Departure Clinical Impression: Vertigo, Brain metastasis 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 Clinical Impression: (Ruled Out): Lymphoma in remission Time of Disposition: 21:17 Disposition: Transfer to Hospital Condition: Fair Referrals: Piero Mann MD [Primary Care Provider] - 1-2 Weeks Home Medications: Ambulatory Orders predniSONE [PredniSONE] 5 mg PO DAILY #0 09/13/12 Alendronate Sodium 150 mg PO WKLY 09/12/14 Cetirizine HCl 10 mg PO DAILY 09/12/14 Levothyroxine Sodium 137 mcg PO DAILY 09/12/14 Valsartan-Hydrochlorothiazide [Valsartan/Hydrochlorothia 320-25 mg] 1 tab PO DAILY@0700 09/12/14 Methotrexate Tab 2.5 mg PO WKLY 11/24/14 Citalopram Hydrobromide [Citalopram] 10 mg PO DAILY 10/22/17 Colestipol HCl 1 gm PO DAILY 10/22/17 Fluticasone Furoate-Vilanterol [Breo Ellipta] 1 inh IN DAILY 10/22/17 Fluticasone Propionate (Nasal) [Flonase Allergy Relief] 2 inh NA DAILY 10/22/17 Fluticasone/Salmeterol 250/50 [Advair Diskus] 1 puff INH DAILY 10/22/17 Folic Acid 1 mg PO DAILY 10/22/17 Hydroxychloroquine Sulfate [Hydroxychloroquine Sulfat] 200 mg PO DAILY 10/22/17 Magnesium Oxide 400 mg PO DAILY #14 cap 10/22/17 Metoprolol Tartrate 25 mg PO BID #60 tab 10/22/17 Montelukast [Singulair] 10 mg PO BEDTIME 10/22/17 Potassium Chloride [Potassium Chloride ER] 10 meq PO DAILY #14 tab 10/22/17 Valsartan 80 mg PO DAILY #30 tab 10/22/17 Transfer to Outside Facility - Transfer Information Accepting Provider:: DR HENRY Accepting Facility: [facility] Reason for Transfer: required specialist not available
[2018-07-23] MEDS ORDERED: CHLORHEXIDINE GLUCONATE 4 % 15 ML UD TOP ONE (20:09)
[2018-07-23] MEDS ORDERED: DEXAMETHASONE INJ 4 MG/ML VIAL IV ONE (20:10)
[2018-07-23] MEDS ORDERED: SODIUM CHLORIDE 0.9% 1000ML 1,000 ML IVS ONE (20:10)
--- NOTE | 2018-07-23 20:18 | RAD ---
EXAM: Chest,1 View CLINICAL INDICATION: Patient fell COMPARISON: 10/22/2017 FINDINGS: A single view of the chest was obtained. The heart size is normal. The pulmonary vascularity is unremarkable. The lungs are clear. There is no consolidation, infiltrate, pleural effusion, or pneumothorax. IMPRESSION: No evidence of active pulmonary disease. Electronically signed by: Ochoa Perales MD 07/23/2018 8:15 PM [employer]
--- NOTE | 2018-07-23 20:23 | CT ---
EXAM: Cervical Spine CLINICAL INDICATION: Trauma, pain, patient fell COMPARISON: There is no previous study for comparison. TECHNIQUE: The CT scan was done using contiguous axial 3mm sections through the cervical spine with sagittal and coronal reconstructions. This exam was performed according to our departmental dose-optimization program, which includes automated exposure control, adjustment of the mA and/or kV according to patient size and/or use of iterative reconstruction technique. FINDINGS: There is no fracture or subluxation. The prevertebral soft tissues are normal. The bilateral facet joint alignment is normal. Moderate degenerative disease is noted at the C5-6 and C6-7 levels. The osseous structures otherwise appear intact and unremarkable. IMPRESSION: No evidence of acute traumatic injury. Electronically signed by: Ochoa Perales MD 07/23/2018 8:20 PM [facility]
--- NOTE | 2018-07-23 20:27 | CT ---
CT LUMBAR SPINE 07/23/2018 CLINICAL HISTORY: Pain after fall COMPARISON: None. TECHNIQUE: Axial 2.[address] imaging of the lumbar spine performed. Reformatted coronal and sagittal images obtained. No contrast utilized. A dose reduction technique was utilized. FINDINGS: There is preserved lumbar lordosis. There is no lumbar compression deformity. There is no traumatic subluxation. No posterior element fracture. Mild dextro convex lumbar curve. There is a significant compression deformity of T10, age indeterminate. There is 4 mm retropulsion. No paraspinal edema. There is a mild diffuse disc bulge at L1-2, L3-4, L5-S1. There is degenerative disc narrowing with end plate sclerosis, vacuum disc at L4-5. 3 mm anterior subluxation of L4 on L5. No fracture within the sacrum. Sacroiliac joints are intact. Within the included retroperitoneum, the abdominal aorta is moderately advanced chronic. No aneurysm. Normal caliber inferior vena cava. Adrenal glands and kidneys appear normal. Small hilar hernia is present. There is diverticulosis within the included segments of sigmoid. Normal bladder. Unremarkable uterus and ovaries. IMPRESSION: 1. No acute lumbar fracture. Multilevel lumbar disc bulges. Degenerative L4-L5 disc changes. 2. High-grade anterior T10 compression fracture with mild retropulsion. 3. Colonic diverticulosis. No diverticulitis. 4. Small hiatal hernia. Electronically signed by: Ela Richard DO 07/23/2018 8:24 PM [employer]
--- NOTE | 2018-07-23 21:02 | CT ---
CT THORACIC SPINE WITHOUT CONTRAST. 07/23/2018 CLINICAL HISTORY: Pain after injury. COMPARISON: Two-view chest 10/22/2017 and MRI lumbar spine 05/21/2018 TECHNIQUE: Axial 2.[address] imaging of the thoracic spine performed. Reformatted coronal and sagittal images obtained. No contrast utilized. A dose reduction technique was utilized. FINDINGS: There is a high-grade complex compression fracture of T10 with up to 30% loss of central vertebral body height and disc height. There is 4 mm retropulsion. There is slight paraspinal edema. There is abutment of the spinal cord by the retropulsion. This fracture is subacute or chronic, present on reference MRI lumbar spine. No additional thoracic spine compression fracture. There is upper thoracic hyperkyphosis. There is generalized decreased bone mineralization. Mild hypertrophic changes seen within the lower cervical and mid thoracic spine. Within the included thorax, there is bilateral lower lobe atelectasis. Mitral annular calcifications and aortic annular calcification are present. Significant atherosclerosis of the thoracic aorta. Small hiatal hernia is present. IMPRESSION: 1. Subacute to chronic high-grade T10 compression fracture with no paraspinal edema. Minimal retropulsion with abutment of the spinal cord. No additional acute fracture within the thoracic spine. 2. Generalized osteopenia. Mild cervical and thoracic spondylosis. Electronically signed by: Ela Richard DO 07/23/2018 8:59 PM OWNER MANAGER
[2018-07-23 21:40] VITALS: BP 135/86; O2SAT 95
[2018-07-23] MEDS ORDERED: DEXAMETHASONE INJ 10 MG/ML VIAL IV ONE (21:40)
[2018-07-23 22:12] VITALS: TEMP 98.8
--- NOTE | 2018-07-24 16:18 | CT ---
EXAM: Head CLINICAL INDICATION: Patient fell COMPARISON: 01/21/2009 TECHNIQUE: The CT scan was done using contiguous axial 5 mm sections through the brain. This exam was performed according to our departmental dose-optimization program, which includes automated exposure control, adjustment of the mA and/or kV according to patient size and/or use of iterative reconstruction technique. FINDINGS: There is extensive vasogenic edema in the left frontal lobe with a left frontal mass noted, series 5, image 36 measuring 2.0 x 1.8 cm. Edema leads to slight midline shift to the right of 5 mm. Another mass is seen in the right cerebellar hemisphere, series 5, image 14 measuring 2.1 x 1.8 cm, with surrounding edema. Diffuse mild atrophy is noted. A questionable third area of edema/underlying mass is seen in the right basal ganglia region. Bone window images reveal no skull fractures or bone lesions. 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 MRI of the brain with and without contrast is recommended for further evaluation. Electronically signed by: Ochoa Perales MD 07/23/2018 8:36 PM [facility]
== END 2018-07-23 22:12 | disposition short-term general hospital (02) ==
LOC: ER 19:17
DX: R42 Dizziness and giddiness (principal); C71.9 Malignant neoplasm of brain, unspecified; C85.90 Non-Hodgkin lymphoma, unspecified, unspecified site; S41.111A Laceration without foreign body of right upper arm, initial encounter; F32.9 Major depressive disorder, single episode, unspecified; K21.9 Gastro-esophageal reflux disease without esophagitis; E07.9 Disorder of thyroid, unspecified; I10 Essential (primary) hypertension; Z98.890 Other specified postprocedural states; Z87.891 Personal history of nicotine dependence; Z79.899 Other long term (current) drug therapy; Z88.0 Allergy status to penicillin; W19.XXXA Unspecified fall, initial encounter; Y92.009 Unspecified place in unspecified non-institutional (private) residence as the place of occurrence of the external cause
CPT/HCPCS: 70450; 71045; 72125; 72128; 72131; 80053; 85025; J1100; J7030